=== PATIENT | male | born 1940 | race Caucasian/White ===

== ENCOUNTER 2016-04-18 08:00 | Outpatient (CLI) | payer MEDICARE, BC | END 2016-04-18 08:01 | disposition home or self-care (01) | DX: Z53.9 Procedure and treatment not carried out, unspecified reason (principal) ==

== ENCOUNTER 2016-04-19 08:20 | Outpatient (CLI) | payer MEDICARE, BC | END 2016-04-19 08:21 | disposition home or self-care (01) | DX: J84.112 Idiopathic pulmonary fibrosis (principal); M10.9 Gout, unspecified ==

== ENCOUNTER 2016-05-08 08:28 | Outpatient (CLI) | payer MEDICARE, BC | END 2016-05-08 08:29 | disposition home or self-care (01) | DX: J84.112 Idiopathic pulmonary fibrosis (principal) ==

== ENCOUNTER 2016-05-23 08:33 | Outpatient (CLI) | payer MEDICARE, BC | END 2016-05-23 08:34 | disposition home or self-care (01) | DX: J84.112 Idiopathic pulmonary fibrosis (principal) ==

== ENCOUNTER 2016-06-09 08:52 | Outpatient (CLI) | payer MEDICARE, BC | END 2016-06-09 08:53 | disposition home or self-care (01) | DX: J84.112 Idiopathic pulmonary fibrosis (principal) ==

== ENCOUNTER 2016-06-21 08:38 | Outpatient (CLI) | payer MEDICARE, BC | END 2016-06-21 08:39 | disposition home or self-care (01) | DX: J84.112 Idiopathic pulmonary fibrosis (principal) ==

== ENCOUNTER 2016-07-17 08:17 | Outpatient (CLI) | payer MEDICARE, BC | END 2016-07-17 08:18 | disposition home or self-care (01) | DX: J84.112 Idiopathic pulmonary fibrosis (principal) ==

== ENCOUNTER 2016-08-07 08:17 | Outpatient (CLI) | payer MEDICARE, BC | END 2016-08-07 08:18 | disposition home or self-care (01) | DX: J84.112 Idiopathic pulmonary fibrosis (principal) ==

== ENCOUNTER 2016-08-12 11:15 | Emergency (ER) | payer MEDICARE, BC ==
[2016-08-12 12:13] LABS: BASOPHILS % (AUTO) 0.9 %; EOSINOPHILS # (AUTO) 0.1 10^3/uL (0.0-0.7); EOSINOPHILS % (AUTO) 1.4 %; HCT - HEMATOCRIT 29.6 % (42.0-52.0); LYMPHOCYTES # (AUTO) 1.5 10^3/uL (1.5-3.5); LYMPHOCYTES % (AUTO) 32.7 %; MEAN CORPUSCULAR HEMOGLOBIN 34.6 pg (27.0-31.0); MEAN CORPUSCULAR HGB CONC 33.9 g/dL (32.0-36.0); MEAN CORPUSCULAR VOLUME 102.3 fL (80.0-94.0); MEAN PLATELET VOLUME 9.1 fL (7.4-11.4); MONOCYTES # (AUTO) 0.2 10^3/uL (0.0-1.0); MONOCYTES % (AUTO) 5.3 %; NEUTROPHILS # (AUTO) 2.7 10^3/uL (1.5-6.6); NEUTROPHILS % (AUTO) 59.7 %; RED CELL DISTRIBUTION WIDTH 13.9 % (12.0-15.0); UNCORRECTED WHITE BLOOD COUNT 4.5 x10^3/uL; WHITE BLOOD COUNT 4.5 x10^3/uL (4.8-10.8)
[2016-08-12 12:26] LABS: ALBUMIN/GLOBULIN RATIO 1.2 (1.0-2.2); BILIRUBIN,TOTAL 0.2 mg/dL (0.2-1.0); CALCIUM 8.6 mg/dL (8.5-10.3); CREATININE 1.4 mg/dL (0.6-1.2); TOTAL PROTEIN 6.2 g/dL (6.7-8.2)
[2016-08-12 12:50] LABS: BILIRUBIN,URINE NEGATIVE (NEGATIVE); PH,URINE 5.5 PH (5.0-7.5)
[2016-08-12 12:54] LABS: UA w/ MICROSCOPIC CHARGE YES
[2016-08-12 13:10] LABS: UR CULTURE IF IND INDICATED; WBC,URINE 0-3 /HPF (0-3)
--- NOTE | 2016-08-12 13:10 | ED Physician Documentation ---
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 Shai Zhou, available at [phone]. For the last week to 10 days he's had low saturations when he exercises, down into the low 80s which is atypical for him and also feels quite fatigued. There is no associated cough or fever.) Review of Systems Ten Systems: 10 systems reviewed and negative Constitutional: reports: Fatigue. denies: Fever, Chills Nose: denies: Rhinorrhea / runny nose, Congestion Cardiac: denies: Chest pain / pressure, Palpitations, Pedal edema, Calf pain Respiratory: denies: Dyspnea, Cough GI: denies: Abdominal Pain, Abdominal Swelling PD PAST MEDICAL HISTORY - Past Medical History Cardiovascular: None Respiratory: Other Neuro: None Endocrine/Autoimmune: None GI: GERD : None HEENT: None Psych: None Musculoskeletal: None Derm: None - Past Surgical History Past Surgical History: Yes - Present Medications Home Medications: Ambulatory Orders Medication Instructions Recorded Confirmed Alendronate Sodium [Fosamax] 70 mg PO DAILY 05/19/14 10/22/14 Aspirin [Aspir 81] 81 mg PO DAILY 05/19/14 10/22/14 Azithromycin [Zithromax] 250 mg PO DAILY 05/19/14 10/22/14 Bisacodyl [Correctol] 5 mg PO DAILY 05/19/14 10/22/14 Carbamazepine [Carbamazepine ER] 100 mg PO BID 05/19/14 10/22/14 Docusate Sodium 100Mg Capsule 100 mg PO BID 05/19/14 10/22/14 [Colace] Ferrous Sulfate [Iron] 325 mg PO DAILY 05/19/14 10/22/14 Magnesium Oxide [Mag Ox] 400 mg PO BID 05/19/14 10/22/14 Mycophenolate Mofetil [Cellcept] 250 mg PO BID 05/19/14 10/22/14 Pantoprazole [Protonix] 40 mg PO DAILY 05/19/14 10/22/14 Pravastatin Sodium 20 mg PO DAILY 05/19/14 10/22/14 Tacrolimus [Prograf] 2.5 mg PO BID 05/19/14 10/22/14 Tamsulosin [Flomax] 0.4 mg PO QPM 05/19/14 10/22/14 Valganciclovir HCl [Valcyte] 450 mg PO BID 05/19/14 10/22/14 predniSONE [Deltasone] 10 mg PO DAILY 05/19/14 10/22/14 levoFLOXacin [Levaquin] 500 mg PO QD #7 tablet 10/22/14 Levofloxacin [Levaquin] 500 mg PO DAILY #9 tablet 08/12/16 - Allergies Allergies/Adverse Reactions: Allergies Allergy/AdvReac Type Severity Reaction Status Date / Time No Known Drug Allergies Allergy Verified 10/22/14 11:10 - Social History Does the pt smoke?: No Smoking Status: Former smoker Does the pt drink ETOH?: Yes Does the pt have substance abuse?: No - Immunizations Immunizations are current?: Yes PD ED PE NORMAL - Vitals Vital signs reviewed: Yes - General General: Alert and oriented X 3, No acute distress - HEENT HEENT: PERRL, EOMI, Pharynx benign - Neck Neck: Supple, no meningeal sign, No bony TTP - Cardiac Cardiac: RRR, No murmur - Respiratory Respiratory: Other (Crackles on the left side, thoracotomy scar on the right) - Abdomen Abdomen: Soft, Non tender - Back Back: No CVA TTP, No spinal TTP - Derm Derm: Normal color, Warm and dry - Extremities Extremities: No edema, No calf tenderness / cord - Neuro Neuro: Alert and oriented X 3, Normal speech - Psych Psych: Normal mood, Normal affect Results - Vitals Vitals: Vital Signs - 24 hr 08/12/16 08/12/16 08/12/16 11:18 11:37 14:57 Temperature 36.5 C Heart Rate 86 83 80 Respiratory 18 22 16 Rate Blood Pressure 97/64 158/82 H O2 Saturation 98 97 100 Oxygen O2 Source Room air - Labs Labs: Laboratory Tests 08/12/16 08/12/16 08/12/16 12:00 12:00 12:10 WBC 4.5 L RBC 2.90 L Hgb 10.0 L Hct 29.6 L MCV 102.3 H MCH 34.6 H MCHC 33.9 RDW 13.9 Plt Count 117 L MPV 9.1 Neut # 2.7 Lymph # 1.5 [place] # 0.2 Eos # 0.1 Baso # 0.0 Absolute Nucleated RBC 0.00 Nucleated RBCs 0.0 D-Dimer Sodium 137 Potassium 5.0 Chloride 108 Carbon Dioxide 23 Anion Gap 6.0 BUN 41 H Creatinine 1.4 H Estimated GFR (MDRD) 49 L Glucose 117 H Lactic Acid 1.0 Calcium 8.6 Total Bilirubin 0.2 AST 18 ALT 20 Alkaline Phosphatase 86 Troponin I Total Protein 6.2 L Albumin 3.4 Globulin 2.8 Albumin/Globulin Ratio 1.2 Lipase 17 L Urine Color Urine Clarity Urine pH Ur Specific [place] Urine Protein Urine Glucose (UA) Urine Ketones Urine Occult Blood Urine Nitrite Urine Bilirubin Urine Urobilinogen Ur Leukocyte Esterase Urine RBC Urine WBC Ur Squamous Epith Cells Urine Bacteria Urine Casts Urine Mucus Ur Microscopic Review Urine Culture Comments 08/12/16 08/12/16 08/12/16 12:30 15:21 16:05 WBC RBC Hgb Hct MCV MCH MCHC RDW Plt Count MPV Neut # Lymph # [place] # Eos # Baso # Absolute Nucleated RBC Nucleated RBCs D-Dimer 905.7 H Sodium Potassium Chloride Carbon Dioxide Anion Gap BUN Creatinine Estimated GFR (MDRD) Glucose Lactic Acid Calcium Total Bilirubin AST ALT Alkaline Phosphatase Troponin I < 0.04 Total Protein Albumin Globulin Albumin/Globulin Ratio Lipase Urine Color YELLOW Urine Clarity CLEAR Urine pH 5.5 Ur Specific [place] 1.020 Urine Protein NEGATIVE Urine Glucose (UA) NEGATIVE Urine Ketones NEGATIVE Urine Occult Blood SMALL H Urine Nitrite NEGATIVE Urine Bilirubin NEGATIVE Urine Urobilinogen 0.2 (NORMAL) Ur Leukocyte Esterase TRACE H Urine RBC 0-5 Urine WBC 0-3 Ur Squamous Epith Cells FEW Squamous Urine Bacteria None Seen Urine Casts 6-10 Hyaline Casts Urine Mucus Few Strands Ur Microscopic Review INDICATED Urine Culture Comments INDICATED - Rads (name of study) Ct Chest with IV contrast Radiology: EMP read contemporaneously (Status post right lung transplant with loculated small right pleural effusion that has increased since prior examination, underlying pulmonary fibrosis and bronchiectasis and left lung) CTA Chest Radiology: EMP read contemporaneously (no PE) PD MEDICAL DECISION MAKING - ED course ED course: 75-year-old gentleman with history of lung transplant presents with unexplained fatigue and exertional hypoxemia. Resting vital signs are fine. CT as shown. Case discussed by phone with his specialist in [place], Dr. Zhou who recommends adding on a d-dimer and troponin and if negative a course of Levaquin. The d-dimer was positive, so this was followed by CT angiogram of the chest which was negative for PE. Departure - Departure Disposition: 01 Home, Self Care Clinical Impression: Lung transplant status, Hypoxemia, Fatigue, D-dimer, elevated Condition: Good Record reviewed to determine appropriate education?: Yes Prescriptions: Levofloxacin [Levaquin] 500 mg PO DAILY #9 tablet Comments: Drink plenty of fluids, stop the azithromycin while on the new antibiotics, restart it when the course is finished. Call Dr. Zhou in 2-3 days to give him an update, return if worse. Your blood pressure was elevated today on check in to the emergency department. This does not mean that you have hypertension, it is a common phenomenon to check into the emergency department and have elevated blood pressure. I recommend that you see your primary care physician within the week to have it rechecked when you're feeling better.
[2016-08-12] MEDS: IOPAMIDOL-300 100 ML VIAL IVP ONE ×2 (13:30→17:05)
--- NOTE | 2016-08-12 14:37 | CT Preliminary Report ---
Exam: CT Chest W/ IMPRESSION: 1. Status post right lung transplant with loculated small right pleural effusion with some dependent atelectasis within the right lower lobe and linear atelectasis versus scarring in the right middle lo be. Compared to the prior examination, size of the loculated effusion has increased. 2. Underlying pulmonary fibrosis with mild bronchiectasis within the left lung. 3. Atherosclerosis including coronary atherosclerosis. [facility] SITE ID: [id number]
--- NOTE | 2016-08-12 14:40 | CT Report ---
EXAM: CT CHEST EXAM DATE: 08/12/2016 01:23 PM. CLINICAL HISTORY: Lung transplant with decreased oxygen saturation and fatigue. COMPARISONS: Chest CT 10/22/2014. TECHNIQUE: Routine helical CT imaging was performed through the chest. IV contrast: None. Reconstructions: Coron al and sagittal. In accordance with CT protocol optimization, one or more of the following dose reduction techniques w ere utilized for this exam: automated exposure control, adjustment of mA and/or KV based on patient s ize, or use of iterative reconstructive technique. FINDINGS: Lungs/Pleura: The patient is status post right lung transplant and there is a small right loculated p leural effusion with some dependent atelectasis within the right lower lobe. Bandlike linear atelecta sis is redemonstrated within the right middle lobe. On the left there is underlying pulmonary fibrosis with minimal associated bronchiectasis within the left lower lobe. Calcified granuloma within the left upper lobe. Mediastinum: Right paratracheal lymph nodes measure up to 12 mm, similar to the prior examination. No pericardial effusion. Coronary atherosclerosis. The aortic arch is left-sided with mild atherosclero tic calcification. Bones: Right rib deformities with wires consistent with the right lung transplant. Mild degenerative disk disease thoracic spine. Visualized Abdomen: Unremarkable. Other: None. IMPRESSION: 1. Status post right lung transplant with loculated small right pleural effusion with some dependent atelectasis within the right lower lobe and linear atelectasis versus scarring in the right middle lo be. Compared to the prior examination, size of the loculated effusion has increased. 2. Underlying pulmonary fibrosis with mild bronchiectasis within the left lung. 3. Atherosclerosis including coronary atherosclerosis. [facility] Referring Provider Line: [phone] SITE ID: [id number]
[2016-08-12 14:58] VITALS: BP 158/82
[2016-08-12] MEDS ORDERED: SODIUM CHLORIDE 0.9% 1,000 ML IV ONE (16:26)
--- NOTE | 2016-08-12 17:32 | CT Preliminary Report ---
Exam: CT Chest Angio (PE) IMPRESSION: 1. No evidence of pulmonary embolus. 2. Mild mosaic perfusion pattern within the right lung compared to the prior examination which probab ly represents some subsegmental atelectasis secondary to respiratory motion on this exam. Differentia l diagnosis would include small airways disease. 3. Please see chest CT performed 3 hours prior for additional comments. [facility] SITE ID: [id number]
--- NOTE | 2016-08-12 17:35 | CT Report ---
EXAM: CT ANGIOGRAM CHEST EXAM DATE: 08/12/2016 05:07 PM. CLINICAL HISTORY: Hypoxemia and high D-dimer. COMPARISON: Chest CT 08/12/2016 at 1322. TECHNIQUE: Routine helical imaging was performed through the chest in the pulmonary arterial phase. I V Contrast: Patient was hydrated and received reduced dose 75 cc Isovue-300. Reconstructions: Coronal 3-D MIP reconstructions.Sagittal and coronal. In accordance with CT protocol optimization, one or more of the following dose reduction techniques w ere utilized for this exam: automated exposure control, adjustment of mA and/or KV based on patient s ize, or use of iterative reconstructive technique. FINDINGS: Pulmonary Arteries: Diagnostic quality: Adequate through the segmental arteries. No evidence for acute or chronic pulmona ry emboli. Lungs/Pleura: Again note is made of a right lung transplant with loculated right pleural effusion lat erally with linear atelectasis versus scarring at the level of the right middle lobe as well as conso lidation in the right lower lobe, likely atelectasis. There is some respiratory motion on this examin ation with a mild mosaic perfusion pattern. Again note is also made of underlying pulmonary fibrosis within the left lung. Mediastinum: Small mediastinal lymph nodes redemonstrated with coronary atherosclerosis. Thoracic Aorta: Atherosclerosis without thoracic aortic aneurysm. Upper Abdomen: Unremarkable. Other: Right-sided rib deformities with wires consistent with the right lung transplant. IMPRESSION: 1. No evidence of pulmonary embolus. 2. Mild mosaic perfusion pattern within the right lung compared to the prior examination which probab ly represents some subsegmental atelectasis secondary to respiratory motion on this exam. Differentia l diagnosis would include small airways disease. 3. Please see chest CT performed 3 hours prior for additional comments. [facility] Referring Provider Line: [phone] SITE ID: [id number]
[2016-08-12] MEDS ORDERED: levoFLOXacin 250 MG TABLET PO STA (17:36)
[2016-08-12] MEDS ORDERED: levoFLOXacin 250 MG TABLET PO ONE (17:41)
== END 2016-08-12 17:50 | disposition home or self-care (01) ==
LOC: ED 11:15
DX: R09.02 Hypoxemia (principal); Z94.2 Lung transplant status; R53.83 Other fatigue; R79.89 Other specified abnormal findings of blood chemistry; R03.0 Elevated blood-pressure reading, without diagnosis of hypertension; Z79.82 Long term (current) use of aspirin; Z87.891 Personal history of nicotine dependence
CPT/HCPCS: 36415; 71260; 71275; 80053; 81001; 83605; 83690; 84484; 85025; 85379; 87040; 87086; 99284; 99285; A9270; Q9967; 81003

== ENCOUNTER 2016-10-02 16:37 | Observation (INO) | payer MEDICARE, BC ==
[2016-10-02 17:26] LABS: BASOPHILS % (AUTO) 0.6 %; EOSINOPHILS % (AUTO) 0.4 %; HCT - HEMATOCRIT 21.5 % (42.0-52.0); LYMPHOCYTES % (AUTO) 23.7 %; MEAN CORPUSCULAR HEMOGLOBIN 31.2 pg (27.0-31.0); MEAN CORPUSCULAR HGB CONC 31.9 g/dL (32.0-36.0); MEAN CORPUSCULAR VOLUME 97.8 fL (80.0-94.0); MEAN PLATELET VOLUME 8.6 fL (7.4-11.4); MONOCYTES # (AUTO) 0.2 10^3/uL (0.0-1.0); MONOCYTES % (AUTO) 4.4 %; NEUTROPHILS # (AUTO) 2.9 10^3/uL (1.5-6.6); NEUTROPHILS % (AUTO) 70.9 %; NUCLEATED RED BLOOD CELLS AUTO 0.1 /100WBC; RED CELL DISTRIBUTION WIDTH 17.7 % (12.0-15.0); UNCORRECTED WHITE BLOOD COUNT 4.1 x10^3/uL; WHITE BLOOD COUNT 4.1 x10^3/uL (4.8-10.8)
[2016-10-02 17:27] LABS: HGB - HEMOGLOBIN 6.9 g/dL (14.0-18.0)
[2016-10-02 17:35] LABS: ALBUMIN/GLOBULIN RATIO 1.1 (1.0-2.2); BILIRUBIN,TOTAL 0.4 mg/dL (0.2-1.0); CALCIUM 8.8 mg/dL (8.5-10.3); CREATININE 1.7 mg/dL (0.6-1.2); POTASSIUM 5.7 mmol/L (3.5-5.0); PT - PROTHROMBIN TIME 11.7 secs (9.9-12.6); TOTAL PROTEIN 6.7 g/dL (6.7-8.2)
--- NOTE | 2016-10-02 17:46 | ED Physician Documentation ---
History of Present Illness - Stated complaint Stated Complaint: F/U ABNORMAL LABS - Chief complaint Chief Complaint: General - History obtained from History obtained from: Patient - History of Present Illness Timing: Unknown Pain level max: 0 Pain level now: 0 Improved by: transfusion Worsened by: nothing - Additonal information Additional information: Patient states that he was told by his lung doctor that he has low hgb. States 2 transfusions in the past month. no cause for anemia found. Lung transplant in 2013. Sent in for transfusion today. Reportedly negative endoscopy and colonoscopy recently. Review of Systems Ten Systems: 10 systems reviewed and negative Constitutional: denies: Fever, Chills Cardiac: denies: Chest pain / pressure Respiratory: reports: Dyspnea GI: denies: Abdominal Pain, Vomiting, Diarrhea Skin: denies: Rash Musculoskeletal: denies: Neck pain, Back pain Neurologic: denies: Headache PD PAST MEDICAL HISTORY - Past Medical History Cardiovascular: None Respiratory: Other Neuro: None Endocrine/Autoimmune: None GI: GERD : None HEENT: None Psych: None Musculoskeletal: None Derm: None - Past Surgical History Past Surgical History: Yes - Present Medications Home Medications: Ambulatory Orders Medication Instructions Recorded Confirmed Alendronate Sodium [Fosamax] 70 mg PO DAILY 05/19/14 10/02/16 Aspirin [Aspir 81] 81 mg PO DAILY 05/19/14 10/02/16 Azithromycin [Zithromax] 250 mg PO DAILY 05/19/14 10/02/16 Bisacodyl [Correctol] 5 mg PO DAILY 05/19/14 10/02/16 Carbamazepine [Carbamazepine ER] 100 mg PO BID 05/19/14 10/02/16 Docusate Sodium 100Mg Capsule 100 mg PO BID 05/19/14 10/02/16 [Colace 100Mg Capsule] Ferrous Sulfate [Iron] 325 mg PO DAILY 05/19/14 10/02/16 Magnesium Oxide [Mag Ox] 400 mg PO BID 05/19/14 10/02/16 Mycophenolate Mofetil [Cellcept] 250 mg PO BID 05/19/14 10/02/16 Pantoprazole [Protonix] 40 mg PO DAILY 05/19/14 10/02/16 Pravastatin Sodium 20 mg PO DAILY 05/19/14 10/02/16 Tacrolimus [Prograf] 2.5 mg PO BID 05/19/14 10/02/16 Tamsulosin [Flomax] 0.4 mg PO QPM 05/19/14 10/02/16 Valganciclovir HCl [Valcyte] 450 mg PO BID 05/19/14 10/02/16 predniSONE [Deltasone] 10 mg PO DAILY 05/19/14 10/02/16 levoFLOXacin [Levaquin] 500 mg PO QD #7 tablet 10/22/14 10/02/16 Levofloxacin [Levaquin] 500 mg PO DAILY #9 tablet 08/12/16 10/02/16 - Allergies Allergies/Adverse Reactions: Allergies Allergy/AdvReac Type Severity Reaction Status Date / Time No Known Drug Allergies Allergy Verified 10/22/14 11:10 - Social History Does the pt smoke?: No Smoking Status: Former smoker Does the pt drink ETOH?: Yes Does the pt have substance abuse?: No - Immunizations Immunizations are current?: Yes - POLST Patient has POLST: No PD ED PE NORMAL - General General: Alert and oriented X 3 - HEENT HEENT: Moist mucous membranes - Neck Neck: Supple, no meningeal sign - Cardiac Cardiac: RRR - Respiratory Respiratory: No respiratory distress, Other (bibasilar crackles) - Abdomen Abdomen: Soft, Non tender, Non distended - Derm Derm: Warm and dry - Neuro Neuro: Alert and oriented X 3 - Psych Psych: Normal mood, Normal affect Results - Vitals Vitals: Vital Signs - 24 hr 10/02/16 10/02/16 16:49 18:23 Temperature 37 C Heart Rate 76 102 H Respiratory 18 20 Rate Blood Pressure 111/64 98/52 L O2 Saturation 95 95 Oxygen O2 Source Nasal cannula - Labs Labs: Laboratory Tests 10/02/16 10/02/16 10/02/16 17:14 17:14 17:14 WBC 4.1 L RBC 2.20 L Hgb 6.9 L* Hct 21.5 L MCV 97.8 H MCH 31.2 H MCHC 31.9 L RDW 17.7 H Plt Count 106 L MPV 8.6 Neut # 2.9 Lymph # 1.0 L [place] # 0.2 Eos # 0.0 Baso # 0.0 Absolute Nucleated RBC 0.00 Nucleated RBCs 0.1 PT 11.7 INR 1.0 APTT 22.1 L Sodium 136 Potassium 5.7 H Chloride 110 Carbon Dioxide 19 L Anion Gap 7.0 BUN 56 H Creatinine 1.7 H Estimated GFR (MDRD) 39 L Glucose 123 H Calcium 8.8 Total Bilirubin 0.4 AST 17 ALT 21 Alkaline Phosphatase 127 H Total Protein 6.7 Albumin 3.5 Globulin 3.2 Albumin/Globulin Ratio 1.1 Lipase 15 L Blood Type Antibody Screen Crossmatch IS Only 10/02/16 10/02/16 17:14 17:14 WBC RBC Hgb Hct MCV MCH MCHC RDW Plt Count MPV Neut # Lymph # [place] # Eos # Baso # Absolute Nucleated RBC Nucleated RBCs PT INR APTT Sodium Potassium Chloride Carbon Dioxide Anion Gap BUN Creatinine Estimated GFR (MDRD) Glucose Calcium Total Bilirubin AST ALT Alkaline Phosphatase Total Protein Albumin Globulin Albumin/Globulin Ratio Lipase Blood Type A POSITIVE Cancelled Antibody Screen NEGATIVE Cancelled Crossmatch IS Only See Detail PD MEDICAL DECISION MAKING - ED course Complexity details: reviewed old records, reviewed results, re-evaluated patient , considered differential, d/w patient, d/w outreach consultant ED course: Patient is a 76-year-old male who presents to the emergency department with symptomatic anemia. Has already undergone a full workup for GI bleeding which has been negative. Likely that this is a immunosuppression causing marrow suppression. Appears to be pancytopenic. Will place the patient in [facility] for blood transfusion. Discussed case with Dr. Curran who accepts. This document was made in part using voice recognition software. While efforts are made to proofread this document, sound alike and grammatical errors may occur. Departure - Departure Disposition: ED Place in Observation Clinical Impression: Symptomatic anemia, History of lung transplant, Pancytopenia, Hyperkalemia Condition: Stable Discharge Date/Time: 10/02/16 18:57
[2016-10-02 18:01] LABS: PARTIAL THROMBOPLASTIN TIME 22.1 secs (24.9-33.3)
[2016-10-02] MEDS ORDERED: oxyCODONE 5 MG TABLET PO PRN (18:37)
[2016-10-02] MEDS ORDERED: SODIUM CHLORIDE FLUSH 0.9% 10 ML SYRINGE IVP PRN (18:37)
[2016-10-02] MEDS ORDERED: ONDANSETRON 4 MG/2 ML VIAL IVP PRN (18:37)
[2016-10-02] MEDS ORDERED: ZOLPIDEM 5 MG TABLET PO PRN (18:37)
[2016-10-02] MEDS ORDERED: ACETAMINOPHEN 325 MG TABLET PO PRN (18:37)
--- NOTE | 2016-10-02 19:37 | HISTORY & PHYSICAL EXAMINATION ---
Chief Complaint - Chief Complaint Chief Complaint: shortness of breath with exertion History of Present Illness - Admitted From Admitted From:: emergency department - History Obtained From Records Reviewed: yes History obtained from: patient Exam Limitations: none - History of Present Illness HPI Comment/Other: Patient is a very pleasant 76-year-old gentleman with a past medical history significant for pulmonary fibrosis status post lung transplant in 2012 at the [facility], the patient was the oldest person to have her receive a transplant at [facility] in the oldest person ever to survive a transplant at [facility], currently on prednisone, tacrolimus, CellCept and prophylactic antibiotics and antivirals, CKD since lung transplant, BPH, GERD and chronic anemia for the past month requiring 2 previous blood transfusions who presented to the emergency department with a chief complaint of shortness of air on exertion. The patient states that he went to see his local lead welder Dr. Connie Sims today and had routine blood work which revealed a hematocrit of 20. The patient was called after the appointment and told to come to the emergency department for blood transfusion. The patient has been worked up since 08/12/2016 for anemia. The patient has received 2 blood transfusions 1 at the [facility] and one [facility]. The patient has undergone EGD colonoscopy and myocardial perfusion nuclear testing all of which have been negative. The patient is now scheduled to see a produce production team member within the next week for further evaluation. The patient does followup with a transplant lead welder at [facility] by the name of Dr. Florian Zhou every 6 weeks. The patient states that for the last few days he's noticed he's had increasing shortness of air with exertion. He also states that he's had increasing fatigue and decreased exercise tolerance. The patient also admits to increasing generalized weakness. He states that prior to his previous to transfusions he felt very similar. He states that he does have improvement in his symptoms once he receives a blood transfusion. The patient would like to receive a blood transfusion and returned home later today. On presentation to the emergency department the patient had stable vital signs he did appear to be somewhat pale. The patient did become slightly tachycardic and had borderline blood pressure while he was in the emergency department. Patient had no signs of bleeding. The patient denied any hematuria, hematemesis , bloody stools or melena. The patient's hemoglobin was found to be 6.9 he also had a low WBC of 4.1 and platelet count of 106. The patient's INR was 1.0 and creatinine was slightly elevated at 1.7 which is not far from his baseline. Patient was also found to have slight hyperkalemia with a potassium of 5.7. Patient was placed in observation for 2 units of packed RBCs and will need to followup with hematology and his lead welder as an outpatient. Review of Systems - Constitutional Constitutional: reports: Fatigue, Weakness. denies: Fever, Chills, Malaise, Poor appetite, Diaphoresis, Night sweats, Weight gain, Weight loss - Eyes Eyes: denies: Pain, Irritation, Amaurosis, Blurred vision, Spots in vision, Field loss, Vision loss, Dipolpia - Ears, Nose & Throat Ears, Nose & Throat: denies: Ear pain, Hearing loss, Hearing aids, Tinnitus, Vertigo, Nasal pain, Nasal discharge, Nosebleeds, Nasal obstruction, Nasal congestion, Sore throat, Hoarseness, Mouth lesions - Cardiovascular Cariovascular: reports: Lightheadedness, Exertional dyspnea, Decr. exercise tolerance. denies: Irregular heart rate, Palpitations, Chest pain, Edema, Syncope, Orthopnea - Respiratory Respiratory: reports: SOB with exertion. denies: Cough, Sputum production, Wheezing, Snoring, Hemoptysis, Orthopnea, SOB at rest, Apnea, Stridor, Pleuritic pain - Gastrointestinal Gastrointestinal: denies: Abdominal pain, Abdominal distention, Constipation, Diarrhea, Change in bowel habits, Rectal bleeding, Black stools, Bloody stools, Nausea, Vomiting, Robert blood emesis, Coffee grounds emesis, Poor appetite - Genitourinary Genitourinary: denies: Dysuria, Frequency, Urgency, Hematuria, Incontinence, Flank pain, Nocturia - Musculoskeletal Musculoskeletal: denies: Muscle pain, Back pain, Muscle aches, Stiffness, Limited range of motion, Muscle weakness, Gout, Joint pain, Joint swelling - Integumentary Integumentary: denies: Rash, Pruritis, Lesions, Dryness, Lumps, Acne, Nail changes - Neurological Neurological: reports: General weakness, Dizziness. denies: Focal weakness, Headache, Numbness, Memory problems, Pre-existing deficit, Abnormal gait, Seizures, Slurred speech - Psychiatric Psychiatric: denies: Depression, Anxiety, Suicidal - Endocrine Endocrine: denies: Polyuria, Polydypsia, Polyphagia, Intolerance to cold - Hematologic/Lymphatic Hematologic/Lymphatic: reports: Anemia. denies: Bruising, Petechiae, Lymphadenopathy History - Past Medical History Cardiovascular: reports: None Respiratory: reports: Other (lung transplant, pulmonary fibrosis) Neuro: reports: None Endocrine/Autoimmune: reports: None GI: reports: GERD : reports: Benign prostate hypertrophy HEENT: reports: None Psych: reports: None Musculoskeletal: reports: None Derm: reports: None MRSA Hx?: No Other Past Medical History: 1. Pulmonary fibrosis status post lung transplant in 2012 at [facility]. 2. Lung transplant in 2012. 3. CKD stage III since transplant. 4. Anemia since August 2016 unknown etiology status post 2 blood transfusions with negative EGD, colonoscopy,, cardiac stress test. 5. BPH. 6. GERD - Past Surgical History Other past surgical history: lung transplant 2012 - Family & Social History Family History: Mother: (old-age), Father: Family History Comment/Other: no family history of diabetes, heart disease, lung disease, cancer Living arrangement: At home Living Situation: Alone Social History Notes: Patient was raised in [place]. He came to [facility] in [place]. He with [employer] [facility], subsequently to [employer], and then to [employer]. He has degrees in law and also has an [employer]. 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 The patient currently lives in [facility] he is fully independent. He denies ever having smoked he does occasionally drink alcohol and denies any illicit drug use. - Substance History Use: Uses substance without health or social issues: NONE Abuse: Recurrent use of substance despite neg consequences: NONE Dependence: Experiences withdrawal or developed tolerances: NONE - POLST Patient has POLST: No POLST Status: DNR Meds/Allgy - Home Medications Home Medications: Ambulatory Orders Medication Instructions Recorded Confirmed Alendronate Sodium [Fosamax] 70 mg PO DAILY 05/19/14 10/02/16 Aspirin [Aspir 81] 81 mg PO DAILY 05/19/14 10/02/16 Azithromycin [Zithromax] 250 mg PO DAILY 05/19/14 10/02/16 Bisacodyl [Correctol] 5 mg PO DAILY 05/19/14 10/02/16 Carbamazepine [Carbamazepine ER] 100 mg PO BID 05/19/14 10/02/16 Docusate Sodium 100Mg Capsule 100 mg PO BID 05/19/14 10/02/16 [Colace] Ferrous Sulfate [Iron] 325 mg PO DAILY 05/19/14 10/02/16 Magnesium Oxide [Mag Ox] 400 mg PO BID 05/19/14 10/02/16 Mycophenolate Mofetil [Cellcept] 250 mg PO BID 05/19/14 10/02/16 Pantoprazole [Protonix] 40 mg PO DAILY 05/19/14 10/02/16 Pravastatin Sodium 20 mg PO DAILY 05/19/14 10/02/16 Tacrolimus [Prograf] 2.5 mg PO BID 05/19/14 10/02/16 Tamsulosin [Flomax] 0.4 mg PO QPM 05/19/14 10/02/16 Valganciclovir HCl [Valcyte] 450 mg PO BID 05/19/14 10/02/16 predniSONE [Deltasone] 10 mg PO DAILY 05/19/14 10/02/16 levoFLOXacin [Levaquin] 500 mg PO QD #7 tablet 10/22/14 10/02/16 Levofloxacin [Levaquin] 500 mg PO DAILY #9 tablet 08/12/16 10/02/16 - Allergies Allergies/Adverse Reactions: Allergies Allergy/AdvReac Type Severity Reaction Status Date / Time No Known Drug Allergies Allergy Verified 10/22/14 11:10 Exam - Vital Signs Reviewed Vital Signs: Yes Vital Signs: Vital Signs x48h Temp Pulse Pulse Resp BP BP Pulse Ox 10/02/16 19:28 36.6 C 74 20 111/65 96 10/02/16 18:55 110/88 H 10/02/16 18:23 102 H 20 98/52 L 95 10/02/16 16:49 37 C 76 18 111/64 95 - Physical Exam General Appearance: positive: No acute distress, Alert Eyes Bilateral: positive: Normal inspection, PERRL, EOMI, No lid inflammation, No scleral icterus, Other (Conjunvtival pallor noted) ENT: positive: ENT inspection nml, Pharynx nml, Dry mucous membranes. negative : Purulent nasal drainage, Pharyngeal erythema, Oral lesions Neck: positive: Nml inspection, Thyroid nml, No JVD, Trachea midline. negative : Thyromegaly, Lymphadenopathy (R), Lymphadenopathy (L), Carotid bruit, Tracheal deviation Respiratory: positive: Chest non-tender, No respiratory distress, Breath sounds nml. negative: Wheezes, Rales, Rhonchi Cardiovascular: positive: Regular rate & rhythm, No murmur, No gallop Peripheral Pulses: positive: 2+ Abdomen: positive: Non-tender, No organomegaly, Nml bowel sounds, No distention. negative: Guarding, Rebound, Hepatomegaly Back: positive: Nml inspection Skin: positive: No rash, Warm, Pallor. negative: Cyanosis Extremities: positive: Non-tender, Full ROM, Nml appearance, No pedal edema. negative: Joint swelling Neurologic/Psychiatric: positive: Oriented x3, CN's nml (2-12), Motor nml, Sensation nml, Mood/affect nml Conclusion/Plan - Problem List (1) Anemia Conclusion/Plan: Patient has had symptomatic anemia since August of 2016. Patient has been worked up with EGD, colonoscopy, nuclear stress test all tests have been negative. The patient is currently on iron supplements. He has received a blood transfusion 2 times in the last 6 weeks. He is in midst of further workup by hematology. Currently the cause of patient's anemia is unknown Patient has been symptomatic with decreased exercise tolerance, shortness of air with exertion and increasing fatigue. He saw his lead welder today in [place] and routine lab work revealed a hematocrit of 20 the patient was asked to go to the emergency department. On presentation to the emergency department the patient has a hemoglobin of 6.9. Plan: Transfuse 2 units of packed RBCs Monitor closely in observation Discharge patient home once blood is transfused if patient is stable Patient to followup outpatient with hematology for further workup Continue iron supplements Qualifiers: Anemia type: unspecified type Qualified Code(s): D64.9 - Anemia, unspecified (2) Pancytopenia Conclusion/Plan: A long with symptomatic anemia requiring blood transfusions since August of 2016 patient has also had pancytopenia. The patient is to see hematology in the next week. Cause of pancytopenia could be related to immunosuppressive medications or could be a primary bone marrow disorders such as myelodysplasia or a virus affecting bone marrow. Patient denies having had any fevers or recent infections. He denies any signs of bleeding. Plan: Transfuse 2 units of packed RBCs and have patient followup as an outpatient with hematology for further workup. (3) Hyperkalemia Conclusion/Plan: Patient's potassium is slightly elevated from his baseline up to 5.7. This is likely secondary to chronic kidney disease. Patient has a slight elevation in his baseline creatinine. Patient will be given hydration with packed RBCs Patient needs further followup as an outpatient. Patient's potassium is less than 6 therefore we will not get an EKG and patient will not receive any treatment for potassium at this point we recommend that patient's blood chemistries be repeated as an outpatient. (4) CKD (chronic kidney disease), stage III Conclusion/Plan: Unknown etiology of chronic kidney disease Could be secondary to immunosuppressive medication as this started after patient 's lung transplant. Currently creatinine is stable but mildly elevated from baseline Patient will receive 2 units of packed RBCs Patient needs a followup for repeat labs as an outpatient. (5) History of lung transplant Conclusion/Plan: Patient on immunosuppressants Will continue patient's home immunosuppressive therapy while he is being transfused. Immunosuppressive because of the patient's anemia, chronic kidney disease, pancytopenia Patient will followup with his transplant lead welder - Lab Results Lab results reviewed: Yes Fish Bones: 10/02/16 17:14 10/02/16 17:14 - Diagnostic Imaging Results Diagnostic Imaging Results: positive: Final report reviewed - EKG Results EKG Interpreted Independently: Yes Issues/Core Measures - Anticipated LOS Anticipated Stay Length: Less than 2 midnights - DVT/VTE - Prophylaxis VTE/DVT Device ordered at admit?: Yes
[2016-10-02] MEDS ORDERED: TACROLIMUS 0.5 MG CAPSULE PO SCH (21:00)
[2016-10-02] MEDS ORDERED: CARBAMAZEPINE 100 MG PO SCH (21:00)
[2016-10-02] MEDS ORDERED: VALGANCICLOVIR HCL 450 MG PO SCH (21:00)
[2016-10-02] MEDS ORDERED: TAMSULOSIN 0.4 MG CAPSULE PO SCH (21:00)
[2016-10-02] MEDS ORDERED: MYCOPHENOLATE MOFETIL 250 MG CAPSULE PO SCH (21:00)
[2016-10-02] MEDS ORDERED: PRAVASTATIN 10 MG TABLET PO SCH (21:00)
[2016-10-02] MEDS ORDERED: DOCUSATE SODIUM 100 MG CAPSULE PO SCH (21:00)
[2016-10-02] MEDS ORDERED: SODIUM CHLORIDE FLUSH 0.9% 10 ML SYRINGE IVP SCH (22:00)
--- NOTE | 2016-10-03 00:19 | Discharge Plan ---
Discharge Plan Disposition: Home, Self Care Condition: Fair Diet: Regular Activity Restrictions: No Restrictions Shower Restrictions: No Driving Restrictions: No Weight Bearing: Full Weight Additional Instructions or Follow Up instructions: You presented to the emergency room with anemia. You received a blood transfusion with 2 units of packed RBCs. This is her third blood transfusions since August. You have undergone extensive workup including EGD, colonoscopy and cardiac stress test. The next appears to be a consultation with hematology. You are scheduled for a consultation and we recommend that you followup with hematology. If you begin to have symptoms again we recommend that you see your primary care physician and have your blood count checked. I also recommend that you try to get blood transfusion set up through the [facility] as opposed to coming into the hospital this can be done through your primary care physician. No Smoking: If you smoke, Please STOP! Call for help.
[2016-10-03 01:01] VITALS: BP 131/76
--- NOTE | 2016-10-03 05:01 | DISCHARGE SUMMARY ---
DATE OF OBSERVATION: 10/02/2016. DATE OF DISCHARGE: 10/03/2016 PRIMARY CARE PHYSICIAN: Dr. Connie Sims, medical specialist, at [facility]. DISCHARGING PHYSICIAN: Dr. Delvis Curran. DISCHARGE DIAGNOSES 1. Anemia. 2. Pancytopenia. 3. Hyperkalemia. 4. Chronic kidney disease stage III. 5. History of lung transplant. DISCHARGE MEDICATIONS 1. Valganciclovir about 450 mg p.o. b.i.d. 2. Flomax 0.4 mg p.o. q.p.m. 3. Tacrolimus 2.5 mg p.o. b.i.d. 4. Pravastatin 20 mg p.o. daily. 5. Protonix 40 mg p.o. daily. 6. CellCept 250 mg p.o. b.i.d. 7. Magnesium oxide 400 mg p.o. b.i.d. 8. Levaquin 500 mg p.o. daily. 9. Iron sulfate 325 mg p.o. daily. 10. Docusate sodium 100 mg p.o. b.i.d. 11. Carbamazepine 100 mg p.o. b.i.d. 12. Bisacodyl 5 mg p.o. daily. 13. Azithromycin 250 mg p.o. daily. 14. Aspirin 81 mg p.o. daily. 15. Fosamax 70 mg p.o. daily. 16. Prednisone 10 mg p.o. daily. 17. Levaquin 500 mg p.o. daily. HOSPITAL COURSE: The patient is a very pleasant 76-year-old gentleman with a past medical history sig nificant for pulmonary fibrosis status post lung transplant in 2012 at [facility], currently on prednisone, tacrolimus, CellCept, and prophylactic antibiotics and antivirals, CKD since lung transplant, BPH, G ERD, hyperlipidemia, and chronic anemia for the past month, requiring 2 previous blood transfusions, who presented to the emergency department with a chief complaint of shortness of air. The patient sta karol that he was seeing his local waiter/waitress third class, Dr. Connie Sims, earlier in the day and had routine b lood work performed, which revealed a hematocrit of 20 down from 28. He was called while he was on hi s way home and told to go to the emergency department for a blood transfusion. The patient has been w orked up since 08/12/2016 for his anemia. He has received 2 blood transfusions, one at the [facility] and one at [facility]. The patient has undergone EGD, colonoscopy, and myocard ial perfusion nuclear testing, all of which have been negative. The patient is now scheduled to see ematology for further evaluation. The patient does follow up with his transplant waiter/waitress third class at [facility]. His name is Dr. Florian Reis. He does so every 6 weeks. The patient had noted increasing shortness of air with exertion and increasing fatigue with decreased exercise tolerance over the last several d ays prior to admission. On presentation to the emergency department, the patient was found to have a hemoglobin of 6.9. He wa s also found to have a WBC of 4.1, and platelet count 106, and has been having pancytopenia since August of this year. The patient's creatinine was also slightly elevated at 1.7 and he was hyperkalemic wit h a potassium of 5.7. The patient was placed in observation and was transfused 2 units of packed RBCs and the patient felt much improved. His symptoms seemed better. The patient was discharged home afte r receiving the blood transfusion. We did not recheck his lab work. He will follow up outpatient for followup labs. He was told to set up a primary care physician so that in the future if he did need fu rther blood transfusions, that he could come to the [facility]. The patient stated that [place], [place] and therefore did not have any interest in get ting a primary care physician [place]. 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 I did pass on to him that I was concer marie about possibly pancytopenia secondary to his immunosuppressive medication and that he did need to get further assessment of his bone marrow, which he was going to by Hematology. He was told to retur n to the emergency department if he does develop further symptoms or find any source of bleeding. PHYSICAL EXAMINATION AT DISCHARGE VITAL SIGNS: Temperature 36.3, heart rate 79, blood pressure 116/73, respiratory rate 16, O2 saturati on 96% on room air. GENERAL: The patient does not appear to be in any acute distress. He is alert and able to answer all of my questions appropriately. HEENT: Pupils are equal and reactive to light. Extraocular muscles are intact. Mucous membranes are m oist. There is no conjunctival pallor or scleral icterus noted. NECK: Supple. No thyromegaly. No JVD. Trachea is midline. LYMPH NODES: There is no cervical or axillary lymphadenopathy noted. CARDIOVASCULAR: S1, S2, regular rate and rhythm. No murmurs, rubs, or gallops. LUNGS: Clear to auscultation bilaterally. No wheezes, rhonchi, or crackles. ABDOMEN: Soft, nontender, nondistended. Bowel sounds are present in all 4 quadrants. EXTREMITIES: There is no lower extremity edema. Peripheral pulses are palpable. There is no cyanosis or clubbing. SKIN: No skin rash, lesions, cellulitis, or abscesses. NEUROLOGIC: The patient is alert, oriented x3. Cranial nerves 2-12 grossly intact. MUSCULOSKELETAL: The patient has good range of motion. No joint tenderness, no joint effusions. LABORATORY: WBC 4.1, hemoglobin 6.9, hematocrit 21.5, platelet count 106. INR 1.0. Sodium 136, potass ium 5.7, chloride 110, carbon dioxide 19, BUN 56, creatinine 1.7, glucose 123, calcium 8.8, total alejo irubin 0.4, AST 17, ALT 21, alkaline phosphatase 127. Total protein 6.7, albumin 3.5, lipase 15. IMAGING: No imaging was performed. FOLLOWUP/RECOMMENDATIONS: The patient is being discharged home after being transfused 2 units of pack ed RBCs after presenting with a hemoglobin of 6.9 with symptoms. The patient's symptoms seem to have resolved and he was anxious to get home as quickly as he could; therefore, no new labs were checked. He was asked to follow up with his waiter/waitress third class to have redraw of his labs. [place] also [place] to get blood transfusions in the future, but the patient stated that he was moving [place]. He was encouraged to follow up w [facility] as per his scheduled appointment. The patient was discharged home in stable condition and will follow up as recommended. TIME SPENT ON DISCHARGE: Greater than 30 minutes were spent on discharge. JOB #: [id number] EXT JOB #:[id number]
[2016-10-03] MEDS ORDERED: PANTOPRAZOLE 40 MG TABLET PO SCH ×2 (07:00→09:00)
[2016-10-03] MEDS ORDERED: MAGNESIUM OXIDE 400 MG TABLET PO SCH (08:00)
[2016-10-03] MEDS ORDERED: predniSONE 10 MG TABLET PO SCH (08:00)
[2016-10-03] MEDS ORDERED: FERROUS SULFATE 325 MG TABLET PO SCH (08:00)
[2016-10-03] MEDS ORDERED: AZITHROMYCIN 250 MG TABLET PO SCH (09:00)
[2016-10-03] MEDS ORDERED: levoFLOXacin 250 MG TABLET PO SCH (09:00)
[2016-10-03] MEDS ORDERED: ASPIRIN EC 81 MG TABLET PO SCH (09:00)
[2016-10-03] MEDS ORDERED: BISACODYL 5 MG PO SCH (09:00)
[2016-10-03] MEDS ORDERED: NON FORMULARY MED (Levofloxacin [Levaquin] 500 MG) PO SCH (09:00)
[2016-10-03] MEDS ORDERED: POLYETHYLENE GLYCOL 3350 17 GM PACKET PO SCH (09:00)
[2016-10-09] MEDS ORDERED: ALENDRONATE 70 MG TABLET PO SCH (07:00)
== END 2016-10-03 01:00 | disposition home or self-care (01) ==
LOC: ED 16:37 → MS 18:37
PROVIDERS: ADMIT Internal Medicine; ATTEND Internal Medicine
DX: D64.9 Anemia, unspecified (principal); D61.818 Other pancytopenia; E87.5 Hyperkalemia; N18.3 Chronic kidney disease, stage 3 (moderate); Z94.2 Lung transplant status; K21.9 Gastro-esophageal reflux disease without esophagitis; N40.0 Benign prostatic hyperplasia without lower urinary tract symptoms; E78.5 Hyperlipidemia, unspecified; Z79.82 Long term (current) use of aspirin; Z79.52 Long term (current) use of systemic steroids; Z79.899 Other long term (current) drug therapy; Z87.891 Personal history of nicotine dependence; Z79.2 Long term (current) use of antibiotics; Z66 Do not resuscitate
CPT/HCPCS: 36415; 36430; 80053; 83690; 85025; 85610; 85730; 86850; 86900; 86901; 86920; 99283; 99285; G0378; P9016; 83036